=== PATIENT | female | born 1940 | race African-American/Black ===

== ENCOUNTER 2017-10-12 16:58 | Emergency (ER) | payer MEDICARE ==
[~2017-10-12 16:58] MED LIST: AMLO10; ANALPRAM 2.5% PR; CHOLMIS5; GLYB1TAB51; TELM1TAB56
[2017-10-12 17:07] VITALS: BP 139/79; PULSE 108; RESP 18; TEMP 98.6; O2SAT 95
[2017-10-12] MEDS ORDERED: VALS1TAB65 PO (17:13)
[2017-10-12] MEDS ORDERED: RANI150C PO (17:13)
[2017-10-12] MEDS ORDERED: HYDR12.57 PO (17:13)
--- NOTE | 2017-10-12 17:27 | PD ---
HPI Chief Complaint: Cardiac Complaint Time Seen by Provider: 17:12 Travel History International Travel<30 days: No Contact w/Intl Traveler<30days: No Traveled to known affect area: No History of Present Illness HPI The patient was seen and examined in the presence of the nurse. This patient complains of a elevated pulse and elevated blood pressure. She checked her blood pressure at home and was elevated and she called paramedics. She is not having any acute symptoms however. Current pulse is 105 and sinus rhythm with occasional PVC. Her blood pressure 139/73. She has had no chest pain or presyncopal symptoms or fever or headache. She does have some stress and anxiety issues. No alleviating factors. No exacerbating factors. Duration is 1 hour PFSH Past Medical History High Cholesterol: Yes Diabetes: Yes Hypertension: Yes Menopausal: Yes Past Surgical History Hysterectomy: Yes (LATE 70S) Other Surgery: Yes ( BILATERAL GBREAST BIOPSIES AND HEMORRHOIDECTOMY) Social History Alcohol Use: No Tobacco Use: No Substance Use: No Allergies-Medications (Allergen,Severity, Reaction): Coded Allergies: latex (Unverified Allergy, Intermediate, 10/12/17) Reported Meds & Prescriptions Reported Meds & Active Scripts Active Reported Ranitidine (Ranitidine HCl) 150 Mg Cap 150 Mg PO BID Review of Systems General / Constitutional: No: Fever Eyes: No: Visual changes HENT: No: Headaches Cardiovascular: Positive: Tachycardia, No: Chest Pain or Discomfort Respiratory: No: Shortness of Breath Gastrointestinal: No: Abdominal Pain Genitourinary: No: Dysuria Musculoskeletal: No: Pain Skin: No Rash Neurologic: No: Weakness Psychiatric: Positive: Anxiety, No: Depression Endocrine: No: Polydipsia Hematologic/Lymphatic: No: Easy Bruising Physical Exam Narrative GENERAL: Well-nourished, well-developed patient in no apparent distress. SKIN: Focused skin assessment reveals no rash and nodules. Skin is Warm and dry. HEAD: Atraumatic. Normocephalic. EYES: Pupils equal and round. No scleral icterus. No injection or drainage. ENT: No nasal bleeding or discharge. Mucous membranes pink and moist. NECK: Trachea midline. No JVD. CARDIOVASCULAR: Regular rate and rhythm. No murmur appreciated. Heart rate 105. Occasional PVC on monitor RESPIRATORY: No accessory muscle use. Clear to auscultation. Breath sounds equal bilaterally. GASTROINTESTINAL: Abdomen soft, non-tender, nondistended. Hepatic and splenic margins not palpable. MUSCULOSKELETAL: No obvious deformities. No clubbing. No cyanosis. No edema. NEUROLOGICAL: Awake and alert. No obvious cranial nerve deficits. Motor grossly within normal limits. Normal speech. PSYCHIATRIC: Appropriate mood and affect; insight and judgment normal. Data Data Last Documented VS Vital Signs Date Time Temp Pulse Resp B/P (MAP) Pulse Ox O2 Delivery O2 Flow Rate FiO2 10/12/17 17:07 98.6 108 18 139/79 (99) 95 Orders Orders Iv Access Insert/Monitor (10/12/17 17:22) Continuous Process Coffee Roaster / Telemetry [email or web address] (10/12/17 17:22) Electrocardiogram (10/12/17 ) Complete Blood Count With Diff (10/12/17 17:22) Basic Metabolic Panel (Bmp) (10/12/17 17:22) Thyroid Stimulating Hormone (10/12/17 17:22) Potassium Bicarb Eff (Effer-K Eff) (10/12/17 19:15) Labs Laboratory Tests Test 10/12/17 17:40 White Blood Count 6.9 TH/MM3 Red Blood Count 4.00 MIL/MM3 Hemoglobin 11.7 GM/DL Hematocrit 35.3 % Mean Corpuscular Volume 88.4 FL Mean Corpuscular Hemoglobin 29.4 PG Mean Corpuscular Hemoglobin Concent 33.2 % Red Cell Distribution Width 13.6 % Platelet Count 246 TH/MM3 Mean Platelet Volume 9.8 FL Neutrophils (%) (Auto) 77.9 % Lymphocytes (%) (Auto) 13.9 % Monocytes (%) (Auto) 7.0 % Eosinophils (%) (Auto) 0.7 % Basophils (%) (Auto) 0.5 % Neutrophils # (Auto) 5.4 TH/MM3 Lymphocytes # (Auto) 1.0 TH/MM3 Monocytes # (Auto) 0.5 TH/MM3 Eosinophils # (Auto) 0.0 TH/MM3 Basophils # (Auto) 0.0 TH/MM3 CBC Comment DIFF FINAL Differential Comment Blood Urea Nitrogen 16 MG/DL Creatinine 0.76 MG/DL Random Glucose 134 MG/DL Calcium Level 9.7 MG/DL Sodium Level 138 MEQ/L Potassium Level 3.2 MEQ/L Chloride Level 102 MEQ/L Carbon Dioxide Level 27.3 MEQ/L Anion Gap 9 MEQ/L Estimat Glomerular Filtration Rate 89 ML/MIN Thyroid Stimulating Hormone 3rd Gen 0.829 uIU/ML MDM Medical Decision Making Medical Screen Exam Complete: Yes Emergency Medical Condition: Yes Medical Record Reviewed: Yes Differential Diagnosis SVT, A. fib, PVCs Narrative Course I have reviewed the patient's electronic medical record. IV placed CBC is normal Metabolic profile shows mild hypokalemia of 3.2 which is replaced orally TSH is normal I reviewed her EKG shows sinus rhythm with quadrigeminy Extended cardiac monitoring reveals sinus rhythm between 100-110 with an occasional PVC and recheck her quadrigeminy has resolved. She just has a rare PVC now. 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
[2017-10-12 18:36] LABS: AUTOMATED NEUTROPHIL # 5.4 TH/MM3 (1.8-7.7); BASOPHIL % 0.5 % (0.0-2.0); EOSINOPHIL % 0.7 % (0.0-4.0); HEMATOCRIT 35.3 % (35.0-46.0); HEMOGLOBIN 11.7 GM/DL (11.6-15.3); LYMPH % 13.9 % (9.0-44.0); MEAN CELL VOLUME 88.4 FL (80.0-100.0); MEAN CORPUSCULAR HEMOGLOBIN 29.4 PG (27.0-34.0); MEAN CORPUSCULAR HGB CONC 33.2 % (32.0-36.0); MEAN PLATELET VOLUME 9.8 FL (7.0-11.0); MONOCYTE # 0.5 TH/MM3 (0-0.9); NEUT % 77.9 % (16.0-70.0); PLATELET COUNT 246 TH/MM3 (150-450); RED CELL DISTRIBUTION WIDTH 13.6 % (11.6-17.2); WHITE BLOOD COUNT 6.9 TH/MM3 (4.0-11.0)
[2017-10-12 18:57] LABS: BICARBONATE 27.3 MEQ/L (21.0-32.0); CALCIUM 9.7 MG/DL (8.5-10.1); CREATININE 0.76 MG/DL (0.50-1.00)
[2017-10-12] MEDS ORDERED: POTASSIUM BICARBONATE 25 MEQ EFFERVESCENT TAB PO ONE (19:15)
--- NOTE | 2017-10-14 00:53 | EKG ---
Date Performed: 10/12/2017 Time Performed: 17:36:29 PTAGE: 76 years EKG: SINUS TACHYCARDIA WITH FREQUENT SUPRAVENTRICULAR PREMATURE COMPLEXES LEFT ATRIAL ENLARGEMEN T LEFT VENTRICULAR HYPERTROPHY AND ST-T CHANGE ABNORMAL ECG NO PREVIOUS TRACING DOCTOR: Steffen Yeung Interpretating Date/Time 10/14/2017 00:52:20
== END 2017-10-12 20:03 | disposition home or self-care (01) ==
LOC: NEPD 16:58
DX: I49.3 Ventricular premature depolarization (principal); I10 Essential (primary) hypertension; E78.00 Pure hypercholesterolemia, unspecified; E11.9 Type 2 diabetes mellitus without complications; Z91.040 Latex allergy status; Z79.899 Other long term (current) drug therapy
CPT/HCPCS: 80048; 84443; 85025; 93005; 99284